=== PATIENT | male | born 1930 | race Caucasian/White ===

== ENCOUNTER 2016-07-05 22:16 | Inpatient (IN) | payer MEDICARE, OTHER ==
--- NOTE | ~2016-07-05 | CT15 ---
[facility] A Service of [facility] RADIOLOGY TEXT RESULTS PATIENT: BRITTNEY CASTILLO LOCATION: [address] : [birth year] UNIT #: [id number] AGE: [address]: Renan Prince MD SEX: M ORDER DR: [id number] [facility] [address] [facility]. [place], [place] [address] [id number] I MR#: [id number] Acc #: [id number] NAME: BRITTNEY CASTILLO. : 1930 SEX: M STUDY DATE/TIME: 07/05/2016 23:16 UNIT: [facility] ROOM: [id number] STUDY DESCRIPTION: CT Angio Chest Attending Physician: Renan Prince M.D. Ordering Physician: Himanshu Strange M.D. Primary Care Physician: Lamine Blood M.D. MEDICAL IMAGING REPORT This report is preliminary unless electronic signature is present EXAM CT chest PE protocol. HISTORY Chest pain since 1999 hours tonight, midsternal chest pain history of hypertension, diabetes and coronary artery disease. TECHNIQUE Axial images performed through the chest following IV contrast. 3-D coronal and sagittal reconstructed images reviewed at a workstation. This CT exam was performed with one or more of the following radiation dose reduction techniques: automatic control, adjustment of mA and/or kV according to patient size, and iterative reconstruction. FINDINGS Pulmonary parenchyma demonstrates thickening interlobular septa probably representing underlying fibrosis or small amount of edema. No alveolar edema, airspace disease or consolidation. No effusions. No mass lesions. Mild tracheobronchiomegaly. Cardiomegaly without failure. Aortic atherosclerotic changes particularly involving the descending thoracic aorta. Enlargement of the pulmonary arteries suggest pulmonary hypertension. No evidence of embolus. Upper abdomen remarkable for post cholecystectomy changes. Mild diffuse degenerative changes thoracic spine. IMPRESSION 1. No definite acute intrathoracic abnormality identified. In particular no evidence of pulmonary embolus. 2. Cardiomegaly with coronary artery atherosclerotic disease and extensive aortic atherosclerotic changes. 3. Basilar interstitial disease. [facility] A Service of [facility] RADIOLOGY TEXT RESULTS PATIENT: BRITTNEY CASTILLO LOCATION: [address] : [birth year] UNIT #: [id number] AGE: [address]: Renan Prince MD SEX: M ORDER DR: Dictated by... Laura Bedoya M.D. THIS IS AN ELECTRONICALLY VERIFIED REPORT Laura Bedoya M.D. at 07/06/2016 5:56 AM LION/rona TD: 07/06/2016 03:33 JOB #: [id number] MEDICAL IMAGING REPORT Page 1 of 1 COPY
--- NOTE | ~2016-07-05 | EKG ---
PATIENT: BRITTNEY CASTILLO UNIT #: [id number] Ventricular Rate: 60 BPM Atrial Rate: 61 BPM P-R Interval: 366 ms QRS Duration: 196 ms Q-T Interval: 500 ms QTC Calculation(Bezet): 500 ms Calculated R [place]: -73 degrees Calculated T [place]: 58 degrees Diagnosis Line: AV dual-paced rhythm with prolonged AV conduction Diagnosis Line: with occasional atrial-paced complexes Diagnosis Line: Abnormal ECG Diagnosis Line: When compared with ECG of 03-MAY-2016 21:19, Diagnosis Line: Electronic ventricular pacemaker has replaced Diagnosis Line: Sinus rhythm Diagnosis Line: Vent. rate has decreased BY 62 BPM Diagnosis Line: Confirmed by LONG NASCIMENTO MD ([id number]) on 07/06/2016 Diagnosis Line: 4:09:46 PM INTERPRETING MD: AZAM TOBIAS
--- NOTE | ~2016-07-05 | CR72 ---
[facility] A Service of [facility] RADIOLOGY TEXT RESULTS PATIENT: BRITTNEY CASTILLO LOCATION: [address] : [birth year] UNIT #: [id number] AGE: [address]: Renan Prince MD SEX: M ORDER DR: [id number] [facility] [address] [facility]. [place], [place] [address] [id number] MR#: [id number] Acc #: [id number] NAME: BRITTNEY CASTILLO. : 1930 SEX: M STUDY DATE/TIME: 07/05/2016 21:26 UNIT: [facility] ROOM: STUDY DESCRIPTION: CR Chest Single View Portable Attending Physician: Himanshu Strange M.D. Ordering Physician: Himanshu Strange M.D. Primary Care Physician: Lamine Blood M.D. MEDICAL IMAGING REPORT This report is preliminary unless electronic signature is present EXAM Portable chest 07/05/2016 INDICATION Cough, congestion for 2 hours COMPARISON 04/03/2015. FINDINGS A portable view of the chest was obtained. The heart size and vascularity are normal and lungs are clear and the bones are unremarkable. Dual lead pacemaker is in good position. IMPRESSION No active disease Dictated by... Tavon Chapa M.D. THIS IS AN ELECTRONICALLY VERIFIED REPORT Tavon Chapa M.D. at 07/07/2016 7:14 AM KENNETH/rona TD: 07/06/2016 00:29 JOB #: [id number] MEDICAL IMAGING REPORT Page 1 of 1 COPY
--- NOTE | ~2016-07-05 | EKG ---
PATIENT: BRITTNEY CASTILLO UNIT #: [id number] Ventricular Rate: 60 BPM Atrial Rate: 61 BPM QRS Duration: 202 ms Q-T Interval: 528 ms QTC Calculation(Bezet): 528 ms Calculated R Byron: -74 degrees Calculated T Byron: 68 degrees Diagnosis Line: Electronic ventricular pacemaker Diagnosis Line: No previous ECGs available Diagnosis Line: Confirmed by LONG NASCIMENTO MD ([id number]) on 07/06/2016 Diagnosis Line: 4:10:19 PM INTERPRETING MD: AZAM TOBIAS
--- NOTE | ~2016-07-05 | HP ---
Unit #: [id number] #: [id number] Patient: BRITTNEY PASTRANA [id number] [facility] [address] [facility]. [place], [place] [address] [id number] I MR#: [id number] NAME: BRITTNEY PASTRANA. ROOM: [facility] Age: 85 Sex: M Admission Date: 07/06/2016 : 1930 Attending Physician: Renan Prince M.D. Primary Care Physician: Lamine Blood M.D. HISTORY AND PHYSICAL CHIEF COMPLAINT Chest pain. HISTORY OF PRESENT ILLNESS Mr. Pastrana is a pleasant 85-year-old whom I saw in the ICU room 14 at [facility]. He is a patient of Drs. Blood and Martinez. He states that he has not received any stents, but follows with Dr. Henriquez with a history of hypertension, diabetes and dyslipidemia. He has peripheral artery disease, sick sinus syndrome, has undergone a permanent pacemaker and has been on chronic anticoagulation for recurrent pulmonary emboli. He has chronic pain syndrome, recently lost 40 pounds because of just not feeling like he wanted to eat, and has been recently evaluated for inoperable lumbar spinal stenosis. Last evening he was undergoing normal daily activities. He went out to the driveway to move his car, walked back in, had eaten normally, sat down in the chair, and developed sharp chest pain, which radiated straight through his back. It was not associated with dyspnea, diaphoresis, or nausea. It was not associated with exertion or relieved by rest. He presented to [facility], and when I saw him today at 08:45, he states that the pain has not changed, and is still present. This morning's troponin is 0.03. Larqu-ox-kiej troponin last evening was normal. He has undergone normal activities recently and has had no PND, orthopnea, syncope or presyncope. PAST MEDICAL HISTORY 1. Stated coronary artery disease. There bare metal stents placed in the right coronary artery in 2005. Subsequent restenosis and reintervention. Reviewed his echo while it was being done. It showed 1+ MR and TR, ejection fraction 55%, mild LVH, and no wall motion abnormalities. RV size was upper normal. Pacemaker was in place. Cardiac catheterization done 03/2013 showed ejection fraction 50%-55%, calcification of the coronary arteries, right coronary artery stents widely patent, left main 40%, LAD 70% mid LAD origin of the second diagonal branch 90% stenosis at the ostium. Proximal LAD calcifications with 40%-50% stenosis. Medical therapy advised. Hematoma occurred after that procedure. 2. Sick sinus syndrome with permanent pacemaker in place. 3. Chronic anticoagulation therapy for recurrent pulmonary emboli. 4. Dyslipidemia. Unit #: [id number] #: [id number] Patient: BRITTNEY PASTRANA 5. Type 2 diabetes. 6. Hypertension. 7. Peripheral vascular disease, left carotid endarterectomy. 8. Diverticular disease. 9. Colonic polyps. 10. Lumbar spinal stenosis. 11. Bladder cancer. 12. BPH. SOCIAL HISTORY He states that he does not smoke or drink. No street drugs. and lives at home. FAMILY HISTORY Negative for premature atherosclerotic disease. ALLERGIES No known drug allergies. CURRENT MEDICATIONS 1. Allopurinol 300 mg daily. 2. Aspirin 81 mg daily. 3. Humulin 30 and 20 units as indicated. 4. Lisinopril 20 mg daily. 5. Warfarin 4 mg daily. 6. Percocet 1 tab t.i.d. 7. Hydralazine 100 mg b.i.d. 8. Metoprolol 50 mg b.i.d. 9. Imdur 60 mg b.i.d. 10. Pravastatin 80 mg daily. 11. Protonix 40 mg daily. REVIEW OF SYSTEMS As per history of present illness. Otherwise, as stated below. GENERAL: No recent fever or chills. Recent 40 pound weight loss due to just not feeling like he wants to eat. ENDOCRINE: Negative for thyroid disease. HEENT: No auditory or visual disturbances. GASTROINTESTINAL: No melena, no hematochezia. RESPIRATORY: No wheezing or significant dyspnea. CARDIOVASCULAR: Vide supra. GENITOURINARY: No dysuria. No back pain suggestive of nephrolithiasis. MUSCULOSKELETAL: Significant back pain. NEUROLOGIC: No seizure disorder, recent CVA, or TIA. PSYCHOLOGICAL: No depression. PHYSICAL EXAMINATION VITALS: Heart rate 69 and regular, blood pressure 151/66, height 5'11", weight 255 pounds. GENERAL: Pleasant, alert, in no acute distress. SKIN: Warm and dry. No xanthelasma. MUSCULOSKELETAL: No missing digits. Moves easily for evaluation. NEUROLOGICAL: Appropriate mood and affect. Alert and oriented x3. HEENT: Pupils equal, round and reactive. No oral cyanosis. No icterus. NECK: Carotids clear to auscultation with no carotid bruits. Normal carotid upstroke bilaterally. Thyroid is normal in size and texture without masses or tenderness. CHEST: Clear to auscultation with no rales or wheezes. Good effort. Unit #: [id number] #: [id number] Patient: BRITTNEY PASTRANA CARDIAC: Normal point of maximum impulse. Normal S1 and S2. No S3, S4 or rub. ABDOMEN: No hepatosplenomegaly, masses or tenderness. Normal bowel sounds. No abdominal bruits heard. EXTREMITIES: No clubbing, cyanosis or edema. Very tender legs bilaterally. VASCULAR: No distal pulses palpated in the extremities. DIAGNOSTIC STUDIES LABORATORY: Fasting glucose 123, creatinine 0.9, potassium 3.7. Troponins normal. INR 1.9. Hemoglobin 11.9, white blood cell count 7.6, platelet count 183,000. CARDIOVASCULAR: ECG shows paced rhythm, left bundle branch block pattern. ASSESSMENT 1. Chest pain, noncardiac. No clear indication as to what this is. He has not had any angina. ECG shows left bundle branch block with no ST changes. Will have Dr. Pedroza see him regarding outpatient suggestions for this noncardiac chest pain. He has known coronary disease, as detailed below, but has been treated medically and has not experienced any exertional symptoms recently. 2. Coronary artery disease, last cardiac catheterization 2013 recommended medical therapy with 70% mid LAD, 90% second diagonal, widely patent RCA stents. 3. Permanent atrial fibrillation, on chronic anticoagulation. 4. History of recurrent pulmonary emboli, chronic anticoagulation. 5. Sick sinus syndrome with permanent pacemaker implanted. He said the generator may need to be changed. 6. Hypertension. 7. Dyslipidemia. 8. Obesity. Recently lost 40 pounds. 9. Obstructive sleep apnea, not treated. 10. Peripheral vascular disease, status post left carotid endarterectomy. RECOMMENDATIONS Continue to rule out myocardial infarction with troponins. If these do not change, I think the patient can be discharged. No further workup is necessary. Optimize medical therapy, based on blood pressure, suboptimal control. We will change the lisinopril to b.i.d., and add a small dose of Lasix to potentiate the CADEN inhibitor. Would recommend initiation of CPAP therapy, with his history of sleep apnea. This can be done as an outpatient. Await Dr. Pedroza's consultation regarding any other GI workup, which can be done as an outpatient. Will treat with some liquid antacids right now, one hour after meals, and this morning in the ICU. Dictated by Renan Prince M.D. Unit #: [id number] #: [id number] Patient: BRITTNEY PASTRANA PJR/gz TD: 07/06/2016 09:19 JOB #: [id number] HISTORY AND PHYSICAL Page 1 of 1 X Renan Prince MD X HISTORY AND PHYSICAL
--- NOTE | ~2016-07-05 | CO ---
Unit #: [id number] #: [id number] Patient: BRITTNEY PASTRANA [id number] [address] [place], [place] [address] [id number] MR#: [id number] NAME: BRITTNEY PASTRANA ROOM: [facility] Age: 85 Sex: M Admission Date: 07/06/2016 : 1930 Attending Physician: Renan Prince M.D. Primary Care Physician: Lamine Blood M.D. Consultation Date: 07/06/2016 CONSULTATION REPORT CHIEF COMPLAINT Chest pain. HISTORY OF PRESENT ILLNESS Mr. 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 While sitting down, before he even ate his bread, he started having pain which was radiating to his back, and he came to the ER for further evaluation. Patient was admitted by Dr. Prince. Patient is pain free completely at this time. He did receive MiraLax in the morning, and he got better. Patient does have a history of significant coronary artery disease and has had stent placement in the past. He has a history of sick sinus syndrome and has a permanent pacemaker. He is on chronic anticoagulation therapy for recurrent pulmonary emboli. A CTA was done in the ER which was negative. Patient does have a history of chronic pain syndrome and is on pain medication and follows up with Pain Management. Patient is completely pain free at this time. He does not complain of any back pain more than normal, no complaint of nausea or vomiting, no complaint of palpitations, no complaint of diarrhea, no complaint of abdominal pain, and no complaint of any dizziness or syncopal episode. He does get constipation because of his pain medications. PAST MEDICAL HISTORY 1. Coronary artery disease, status post stent placement. 2. History of sick sinus syndrome, status post pacemaker placement. 3. Pulmonary embolism. 4. Chronic anticoagulation therapy. 5. Hypertension. 6. Hyperlipidemia. 7. Diabetes mellitus type 2. 8. Peripheral vascular disease. 9. Colonic polyp. 10. Bladder cancer. 11. Benign prostatic hypertrophy. SOCIAL HISTORY Patient lives at home with his . He is pretty active. He has no history of smoking, alcohol, or drug abuse. FAMILY HISTORY Unremarkable at this time. Unit #: [id number] #: [id number] Patient: BRITTNEY PASTRANA ALLERGIES No known drug allergies. HOME MEDICATIONS 1. Allopurinol. 2. Aspirin. 3. Humulin. 4. Lisinopril. 5. Warfarin. 6. Percocet. 7. Hydralazine. 8. Metoprolol. 9. Imdur. 10. Pravastatin. 11. Protonix. REVIEW OF SYSTEMS As per History of Presenting Illness. PHYSICAL EXAMINATION GENERAL: Patient is a very pleasant elderly male lying comfortably in bed in no respiratory distress. VITAL SIGNS: Stable. Blood pressure is 151/66, heart rate 69 and regular rhythm, and respiratory rate is 18. HEENT: Head is normocephalic. No trauma. Eyes: Pupils are equal and reactive to light. Eye movements are normal. NECK: Supple. No JVD, no carotid bruit. Thyroid is normal size. Trachea is in midline. CHEST: Fair air entry. No additional sounds. Good effort. ABDOMEN: Soft. No epigastric tenderness. Bowel sounds are positive. EXTREMITIES: Negative edema. Pulses are palpable. CENTRAL NERVOUS SYSTEM: Awake, alert, and oriented x3. No focal neurological deficit. DIAGNOSTIC STUDIES LABORATORY: Glucose 123 and potassium 3.7. Troponin is normal. INR 1.9. Hemoglobin 11.9, WBC 7.6, and platelet count 183,000. IMAGING: CTA is negative for PE. CARDIOLOGY: EKG shows paced rhythm. ASSESSMENT AND PLAN 1. Patient was admitted to the ICU for acute chest pain. Acute cardiac etiology was ruled out. Patient was seen by Dr. Prince, and no further cardiac workup is needed at this time. Patient did receive Maalox in the morning and is feeling much better and is pain free. Patient does have a history of gastroesophageal reflux disease. He does not want to stay in the hospital for further gastrointestinal workup. His is alone and has had a stroke so would like to go home. Patient does have an appointment with Dr. Blood in the morning. Advised to see him in the morning. 2. Permanent atrial fibrillation on chronic anticoagulation therapy which is stable, slightly subtherapeutic. Labs may need to be done as an outpatient. 3. History of sick sinus syndrome, status post pacemaker placement, seems to be regular rhythm. At this time, hypertension is stable. Continue home medication. Unit #: [id number] #: [id number] Patient: BRITTNEY PASTRANA 4. Hyperlipidemia. Continue home medication. 5. Peripheral vascular disease, status post carotid endarterectomy. 6. Diabetes mellitus. Patient's sugars are in good range. Continue home medications. 7. Patient's lisinopril has been changed to twice daily by Dr. Prince. Will continue that. 8. Plan of care discussed with patient at length and medication reconciliation was reviewed. 1. Dictated by... Gayathri May TD: 07/06/2016 20:19 JOB #: [id number] CONSULTATION REPORT Page 1 of 1 X Shasha Pedroza MD X CONSULTATION REPORT
[2016-07-05 22:12] LABS: BASOPHIL% 0.6 % (0-2.5); EOSINOPHIL# 0.1 X10e3 (0-0.7); EOSINOPHIL% 2.4 % (0.0-7.0); HEMATOCRIT 35.9 % (38.0-50.0); LYMPHOCYTE# 1.3 X10e3 (1.0-3.5); LYMPHOCYTE% 24.6 % (17.0-45.0); MEAN CELL VOLUME 97.2 FL (83-96); MEAN CORPUSCULAR HEMOGLOBIN 32.4 PG (28-34); MEAN CORPUSCULAR HGB CONC 33.4 g/dL (30-36); MONOCYTE# 0.6 X10e3 (0-1.0); MONOCYTE% 10.7 % (3.0-12.0); NEUTROPHIL# 3.3 X10e3 (1.5-7.1); NEUTROPHIL% 61.7 % (40-75); PLATELET COUNT 193 X10e3 (140-420); RED BLOOD COUNT 3.69 X10e (3.90-5.60); RED CELL DISTRIBUTION WIDTH 13.6 % (11.0-15.5); WHITE BLOOD COUNT 5.3 X10e3 (4.0-10.5)
[2016-07-05 22:16] LABS: DIFF IND NO
[~2016-07-05 22:16] MED LIST: ALLEGRA PO; ALLERGY RELIEF OTC; ALLOPURINOL300 MG PO; ALPRAZOLAM PO; AMLODIPINE BESYL5 MG PO; ANTIBIOTIC; APRESOLINE PO; ASPIRIN EC81 M1 PO; ASPIRIN PO; ASPIRIN81 M1 PO; AVODART0.5 MG PO; CARAFATE PO; CIPRO PO; CLONIDINE PO; COLCHICINE PO; COREG PO; COUMADIN PO; COUMADIN1 MG; COUMADIN2.5 MG PO; COUMADIN4 MG PO; COUMADIN5 MG PO; CRESTOR PO; EFFER-K 10 MEQ10 MEQ PO; FERROUS SULFATE PO; FISH OIL 1,0001 CAP PO; FISH OIL 1,0001 EAC3 PO; FISH OIL 1,2001 CAP PO; FLOMAX0.4 M1 PO; FLOMAX0.4 MG PO; FUROSEMIDE40 MG PO; GARLIC; GARLIC OIL1000 MG PO; GARLIC1 TAB PO; GARLIC1000 MG PO; GLUCOSAMINE PO; HUMULIN N VIAL; HUMULIN N VIAL SUBQ; HUMULIN N100 UNIT/2 SUBQ; HUMULIN N300 U/3 ML SUBQ; HUMULIN R100 U/ML; HUMULIN R100 U/ML SUBQ; HYDRALAZINE HC100 MG PO; HYDRALAZINE HCL50 MG PO; HYDROCODON-ACE1 EAC7 PO; IMDUR PO; IMDUR-ER60 M1 PO; IMDUR-ER60 MG PO; INSULIN; ISORDIL PO; K-DUR20 ME1 PO; KCL PO; LASIX PO; LIPITOR20 MG PO; LISINOPRIL; LISINOPRIL PO; LISINOPRIL10 MG PO; LISINOPRIL20 MG PO; LODINE PO; LOPRESSOR; LOPRESSOR PO; LORTAB 7.5-5001 TAB PO; LORTAB 7.51 TAB PO; MAG-OXIDE400 MG PO; MAXZIDE 75/50 T1 TAB; MAXZIDE 75/50 T1 TAB PO; MEDROL4 MG/DOSE- PO; MELATONIN10 M1 PO; MELATONIN3 MG PO; MELATONIN5 M1 PO; MELATONIN5 M2 PO; METOPROLOL SUCC50 MG PO; MILK OF MAGNESIA PO; MIRALAX255 GM PO; MOBIC PO; MORPHINE IR PO; MORPHINE SULFAT15 MG PO; NEURONTIN100 MG PO; NITROGLYCERIN PO; NITROLINGUAL; NITROSTAT0.4 MG SL; NORVASC PO; NOVOLIN N100 U/ML; NOVOLIN N100 U/ML SUBQ; NOVOLIN N100 UNIT/1 INJ; NOVOLIN N100 UNIT/1 SQ; NOVOLIN N100 UNIT/1 SUBQ; NOVOLIN R100 U/ML; NOVOLIN R100 UNITS/; NOVOLIN R100 UNITS/ INJ; NOVOLIN R100 UNITS/ SUBQ; OSTEO BI-FLEX1 EAC1 PO; PANTOPRAZOLE SO40 MG PO; PERCOCET; PERCOCET 5-3251 TAB PO; PERCOCET 7.5-31 EACH PO; PERCOCET PO; PERCOCET5/325 PO; PLAVIX PO; PRAVACHOL PO; PRAVACHOL80 MG PO; PRAVASTATIN SOD80 MG PO; PRINIVIL20 M1 PO; PRINIVIL40 MG PO; PROSCAR5 MG PO; PROTONIX PO; RANEXA500 MG PO; REGLAN PO; SENNA PO; TOPROL XL; TOPROL XL 50 MG50 M1 PO; TOPROL XL 50 MG50 MG PO; VICOPROFEN 200-1 TAB; WARFARIN SODIUM2 M1 PO; WARFARIN SODIUM3 M1 PO; WARFARIN SODIUM4 M1 PO; ZOFRAN8 MG PO
[2016-07-05 22:27] LABS: INR 1.9; PARTIAL THROMBOPLASTIN TIME 34.1 SECONDS (23.5-31.3); PROTHROMBIN TIME (PATIENT) 20.1 SECONDS (9.6-11.5)
[2016-07-05 22:29] LABS: POC - CKMB <1.0 ng/mL (0.0-7.9); POC - TROPONIN <0.05 ng/mL (<=0.05)
[2016-07-05 22:39] LABS: ALBUMIN SERUM 3.6 g/dL (3.5-5.0); BILIRUBIN, DIRECT 0.1 mg/dL (0.0-0.2); BILIRUBIN,INDIRECT 0.3 mg/dL (0.0-0.9); BILIRUBIN,TOTAL 0.4 mg/dL (0.2-2.0); BUN/CREATININE RATIO 25.55; CALCIUM SERUM 8.8 mg/dL (8.4-10.2); CREATININE SERUM 0.9 mg/dL (0.6-1.4); GLOM FILT RATE Estimated 76.5 mL/min (>60); POTASSIUM 3.8 mmol/L (3.5-5.1); PROTEIN TOTAL SERUM 6.8 g/dL (6.0-8.3)
[2016-07-06 00:24] LABS: POC - CKMB 1.2 ng/mL (0.0-7.9); POC - TROPONIN <0.05 ng/mL (<=0.05)
[2016-07-06 06:04] LABS: BASOPHIL% 0.4 % (0-2.5); EOSINOPHIL# 0.1 X10e3 (0-0.7); EOSINOPHIL% 1.8 % (0.0-7.0); HEMOGLOBIN 11.9 gm/dL (13.0-16.0); LYMPHOCYTE# 1.1 X10e3 (1.0-3.5); LYMPHOCYTE% 14.5 % (17.0-45.0); MEAN CELL VOLUME 96.5 FL (83-96); MEAN CORPUSCULAR HGB CONC 33.1 g/dL (30-36); MEAN PLATELET VOLUME 7.2 FL (6.5-11.5); MONOCYTE# 0.7 X10e3 (0-1.0); MONOCYTE% 9.3 % (3.0-12.0); NEUTROPHIL# 5.6 X10e3 (1.5-7.1); PLATELET COUNT 183 X10e3 (140-420); RED BLOOD COUNT 3.73 X10e (3.90-5.60); RED CELL DISTRIBUTION WIDTH 13.9 % (11.0-15.5); WHITE BLOOD COUNT 7.6 X10e3 (4.0-10.5)
[2016-07-06 06:05] LABS: DIFF IND NO
[2016-07-06 06:28] LABS: INR 1.9; PROTHROMBIN TIME (PATIENT) 20.1 SECONDS (9.6-11.5)
[2016-07-06 07:16] LABS: ALBUMIN SERUM 3.4 g/dL (3.5-5.0); BILIRUBIN,TOTAL 0.5 mg/dL (0.2-2.0); BUN/CREATININE RATIO 21.11; CALCIUM SERUM 8.8 mg/dL (8.4-10.2); CREATININE SERUM 0.9 mg/dL (0.6-1.4); GLOM FILT RATE Estimated 76.5 mL/min (>60); POTASSIUM 3.7 mmol/L (3.5-5.1); PROTEIN TOTAL SERUM 6.1 g/dL (6.0-8.3)
[2016-07-06 07:24] LABS: CK TOTAL 56 IU/L (36-174)
[2016-07-06 12:28] LABS: CK TOTAL 49 IU/L (36-174)
[2016-07-06 18:45] LABS: MB 1.8 ng/ml
== END 2016-07-06 19:30 | disposition home or self-care (01) | DRG 392 ==
LOC: CED 22:16 → CEDOF 07-06 01:55 → CICCU3 07-06 04:00
PROVIDERS: Emergency Medicine
PROC: B32TYZZ Computerized Tomography (CT Scan) of Left Pulmonary Artery using Other Contrast (ICD-10-PCS; 2016-07-05)
PROC: B32SYZZ Computerized Tomography (CT Scan) of Right Pulmonary Artery using Other Contrast (ICD-10-PCS; 2016-07-05)
PROC: B246YZZ Ultrasonography of Right and Left Heart using Other Contrast (ICD-10-PCS; principal; 2016-07-06)
DX: K21.9 Gastro-esophageal reflux disease without esophagitis (principal); I11.0 Hypertensive heart disease with heart failure; I48.2 Chronic atrial fibrillation; I50.9 Heart failure, unspecified; Z79.01 Long term (current) use of anticoagulants; I25.10 Atherosclerotic heart disease of native coronary artery without angina pectoris; Z95.5 Presence of coronary angioplasty implant and graft; Z90.49 Acquired absence of other specified parts of digestive tract; Z87.891 Personal history of nicotine dependence; E11.9 Type 2 diabetes mellitus without complications; E78.5 Hyperlipidemia, unspecified; Z95.0 Presence of cardiac pacemaker; Z86.711 Personal history of pulmonary embolism; I73.9 Peripheral vascular disease, unspecified; Z86.010 Personal history of colon polyps; Z85.51 Personal history of malignant neoplasm of bladder; N40.0 Benign prostatic hyperplasia without lower urinary tract symptoms; M48.06 Spinal stenosis, lumbar region; Z79.82 Long term (current) use of aspirin; Z79.4 Long term (current) use of insulin; E66.9 Obesity, unspecified; G47.33 Obstructive sleep apnea (adult) (pediatric); Z68.35 Body mass index [BMI] 35.0-35.9, adult
CPT/HCPCS: 71010; 71275; 80048; 80053; 80076; 82550; 82553; 82947; 83690; 84484; 85025; 85610; 85730; 93005; 93306; 96361; 96374; 96375; 96376; 99291; C9113; J1815; J2270; J3010; Q9967

== ENCOUNTER → 2016-09-01 | Day surgery (SDC) | payer MEDICARE, OTHER ==
--- NOTE | ~2016-09-01 | OR ---
Unit #: [id number] #: [id number] Patient: BRITTNEY CASTILLO [id number] [address] [place], [place] [address] [id number] MR#: [id number] NAME: BRITTNEY CASTILLO ROOM: Date of Procedure: 09/01/2016 Admission Date: 09/01/2016 Surgeon: Anders Wiley Jr., M.D. : 1930 Attending Physician: Anders Wiley Jr., M.D. Primary Care Physician: Lamine Blood M.D. OPERATIVE REPORT INDICATION FOR PROCEDURE The patient is an 85-year-old white male with a known past history for esophageal stenosis. He is having progressive dysphagia recently. He was brought in at this time for upper endoscopy with probable dilatation. At this time for recurrent stenosis, he understands the procedure including the risks, including that of perforation and bleeding, and consents. PREOPERATIVE DIAGNOSES Recurrent esophageal stenosis with dysphagia. POSTOPERATIVE DIAGNOSES Recurrent esophageal stenosis with dysphagia, noting mild distal esophageal stenosis with mild chronic gastritis. ANESTHESIA MAC anesthesia. PROCEDURE PERFORMED Flexible fiberoptic esophagogastroduodenoscopy with antral biopsy for Helicobacter pylori and balloon dilatation of the distal esophagus from 18 to 19 to 20 mm. DESCRIPTION OF PROCEDURE The patient was positioned in the supine position. After being given MAC anesthesia, the Olympus XQ scope was passed through the proximal esophagus. The entire esophagus was examined, and proximal two-thirds appeared normal. In the area of the distal esophagus, there was evidence of some mild stenosis without significant ulceration or inflammation. The scope was advanced through the GE junction, the cardia, fundic, and antral region of the stomach and retroflexed back up to the area of the cardia. There was no hiatal hernia present. The stomach distended well without evidence of rigidity. No evidence of any gastric ulcer disease. There was some chronic atrophic gastritis. The scope was advanced down the antral region, where a biopsy was taken from the antrum for Helicobacter pylori without significant bleeding. The scope was advanced through the pylorus and the duodenal bulb and down to the second portion of the duodenum. The entire duodenal portion examination was within normal limits. The scope was brought back up the area of the fundus, and 18 to 20 mm adjustable balloon dilator was placed brought up in the distal esophagus and used to dilate the distal esophagus from 18 to 19 to 20 mm slowly. The dilator was removed. The distal esophagus was then checked, and there was no evidence of any tears, perforation, or significant Unit #: [id number] #: [id number] Patient: BRITTNEY CASTILLO bleeding. The scope was removed. The patient tolerated the procedure well and discharged in satisfactory condition. Dictated by... Anders Wiley Jr., MRanda NAPIER/susan TD: 09/01/2016 07:53 JOB #: [id number] OPERATIVE REPORT Page 1 of 1 X Anders Wiley MD X PROCEDURE OPERATIVE NOTE
== END | disposition home or self-care (01) ==
LOC: COPS 05:39
DX: K22.2 Esophageal obstruction (principal); K29.50 Unspecified chronic gastritis without bleeding; I25.10 Atherosclerotic heart disease of native coronary artery without angina pectoris; J44.9 Chronic obstructive pulmonary disease, unspecified; I11.0 Hypertensive heart disease with heart failure; I50.22 Chronic systolic (congestive) heart failure; E11.9 Type 2 diabetes mellitus without complications; E78.5 Hyperlipidemia, unspecified; E66.9 Obesity, unspecified; I48.0 Paroxysmal atrial fibrillation; M06.9 Rheumatoid arthritis, unspecified; G47.30 Sleep apnea, unspecified; Z68.32 Body mass index [BMI] 32.0-32.9, adult; Z85.51 Personal history of malignant neoplasm of bladder; Z86.711 Personal history of pulmonary embolism; Z86.010 Personal history of colon polyps; Z87.442 Personal history of urinary calculi; Z87.891 Personal history of nicotine dependence; Z79.82 Long term (current) use of aspirin; Z79.899 Other long term (current) drug therapy; Z79.01 Long term (current) use of anticoagulants; Z79.4 Long term (current) use of insulin; Z79.891 Long term (current) use of opiate analgesic; Z90.49 Acquired absence of other specified parts of digestive tract; Z95.5 Presence of coronary angioplasty implant and graft; Z95.0 Presence of cardiac pacemaker; Z95.2 Presence of prosthetic heart valve; Z98.41 Cataract extraction status, right eye; Z98.42 Cataract extraction status, left eye; Z98.890 Other specified postprocedural states
CPT/HCPCS: 82947; 87077